=== PATIENT | female | born 1970 | race Hispanic/Latino ===

== ENCOUNTER 2017-11-23 04:31 | Emergency (ER) | payer BC, OTHER ==
[~2017-11-23 04:31] MED LIST: ACET-2743 PO; TYL3 PO
[2017-11-23] MEDS ORDERED: METHYLPREDNISOLONE SOD SUCC 125MG/2ML VIAL ONE (04:44)
[2017-11-23] MEDS ORDERED: DiphenhydrAMINE HCL 50 MG/ML VIAL ONE (04:44)
[2017-11-23] MEDS ORDERED: SODIUM CHLORIDE 0.9% 1000ML 1,000 ML IV ONE (04:44)
[2017-11-23] MEDS ORDERED: FAMOTIDINE/PF 20 MG/2 ML VIAL IV ONE (04:45)
== END 2017-11-23 06:29 | disposition home or self-care (01) ==
LOC: EDH 04:31
DX: L50.0 Allergic urticaria (principal); Z88.1 Allergy status to other antibiotic agents; Z90.710 Acquired absence of both cervix and uterus; Z98.890 Other specified postprocedural states
CPT/HCPCS: 96361; 96374; 96375; 99285; J1200; J2930; J3490; J7030